=== PATIENT | female | born 1975 | race Caucasian/White ===

== ENCOUNTER → 2023-09-26 14:59 | Outpatient (REF) | payer OTHER, SELFPAY | LOC: MRI 3T 14:59 | PROVIDERS: ATTENDING PHYSICIAN Obstetrics & Gynecology; FAMILY PHYSICIAN Internal Medicine | DX: Z12.39 Encounter for other screening for malignant neoplasm of breast (principal) | CPT/HCPCS: 77049; A9585 ==